=== PATIENT | female | born 1955 | race Caucasian/White ===

== ENCOUNTER → 2017-05-20 | Outpatient (CLI) | payer MEDICARE, BC ==
[~2017-05-20] MED LIST: ALBUTEROL SULFATE 2.5 MG/3 ML VIAL NEB ONE
== END ==
LOC: RESP 09:32
PROVIDERS: ATTEND Nurse Practitioner Family
DX: J44.9 Chronic obstructive pulmonary disease, unspecified (principal)
CPT/HCPCS: 94060; J7611

== ENCOUNTER → 2018-01-27 | Outpatient (CLI) | payer MEDICARE, BC ==
--- NOTE | 2018-01-27 14:57 | MRI ---
MRI right ankle without contrast INDICATION: Ankle pain status post fall 2 weeks ago TECHNIQUE: Noncontrast MR imaging right ankle standard protocol FINDINGS: There is a multi partite small accessory navicular ossification distal posterior tibialis. Small ossifications along the anterior talofibular ligament likely from previous sprain. There is localized arthrosis with subchondral cystic change and edema involving the calcaneocuboid joint as well as multifocal TMT compartments and navicular middle and navicular lateral cuneiform articulations. There is interstitial partial tearing throughout the peroneus brevis with interstitial longitudinal split. Mild tendinosis of the peroneus longus as well. Prominent plantar enthesophyte without rupture the plantar aponeurosis. Fragmented appearing irregular Achilles enthesophyte. Mild cystic change and edema along the sinus Tarsi. Localized osteoarthrosis of the posterior aspect posterior subtalar compartment with subchondral cysts and edema. There is also subchondral cystic change and edema at the anterior lip of the tibial plafond indicating localized chondrosis and developing osteoarthrosis. No Achilles or or plantar aponeurosis rupture or retraction. No focal osteochondral lesion of the talar dome. IMPRESSION: Multifocal osteoarthrosis of the right ankle/hindfoot especially calcaneocuboid as well as posterior subtalar and to a lesser extent anterior tibial plafond and as well as the midfoot especially navicular cuneiform and TMT joints Interstitial split tear with longitudinal peroneus brevis Small accessory navicular ossifications distal posterior tibialis Otherwise see above discussion Electronically signed by: Hieu Mendoza MD 01/27/2018 2:55 PM CDT
== END ==
LOC: MRI 11:00
PROVIDERS: ATTEND Nurse Practitioner Family
DX: M19.071 Primary osteoarthritis, right ankle and foot (principal); M25.571 Pain in right ankle and joints of right foot

== ENCOUNTER 2018-09-05 01:03 | Emergency (ER) | payer MEDICARE, BC ==
--- NOTE | 2018-09-05 01:24 | ED.PDOC ---
History of Present Illness - General Chief Complaint: Chest Pain/SD Stated Complaint: chest pain Time Seen by Provider: 09/05/18 01:18 Source: patient, family, EMS Exam Limitations: no limitations - History of Present Illness Initial Comments: patient comes in today for chest pain at rest. Patient states he pain started hour ago that was pressure-like, substernal without radiation but with associated diaphoresis, nausea, and shortness of breath. Pain persisted until EMS arrived and nitro and aspirin were given. At this time patient is asymptomatic. Pas she has no known cardiac history but she does admit that she has had angina before and that the nitroglycerin made it go away. She admits that she was supposed to follow up but felt better and never had stress test nor does she have nitroglycerin at home. On Thursday she had surgery on her right ankle and was doing well until today. Today she had sudden pain in the groin and in the right lower leg but that also has resolved. Timing/Duration: 1 hour Severity/Quality: severe, pressure Location: substernal Chest Pain Radiation: no radiation Activities at Onset: rest Prior Chest Pain/Cardiac Workup: angina Improving Factors: medication Worsening Factors: nothing Nitro Today/Relief: 0.4 mg x 1, provided by EMS Aspirin Treatment Today: 325 mg x 1, provided by EMS Associated Symptoms: diaphoresis, nausea/vomiting, shortness of breath Allergies/Adverse Reactions: Allergies NO KNOWN ALLERGY Allergy (Verified 09/05/18 01:22) Home Medications: Ambulatory Orders Albuterol Sulfate [Proair Hfa] 2 puff INH Q6H PRN 09/05/18 Celecoxib [Celebrex] 200 mg PO BID 09/05/18 Cephalexin 500 mg PO BID 09/05/18 Nitroglycerin 0.4 mg Tab [Nitrostat] 0.4 mg SL .Q5M PRN #60 bttl 09/05/18 Review of Systems - Review of Systems Constitutional: States: no symptoms reported. Denies: chills, fever, weakness EENTM: States: no symptoms reported. Denies: eye pain, ear pain, nose congestion, throat pain Respiratory: States: see HPI, short of breath. Denies: cough, wheezing Cardiology: States: see HPI, chest pain. Denies: edema, palpitations Gastrointestinal/Abdominal: States: nausea. Denies: abdominal pain, constipation, vomiting Genitourinary: States: no symptoms reported Musculoskeletal: States: no symptoms reported Skin: States: no symptoms reported Family Medical History - Family History Mother Family History: Unknown Living Status: Unknown Physical Exam - Physical Exam General Appearance: Alert, Comfortable, No apparent distress Eyes, Ears, Nose, Throat Exam: PERRL/EOMI, normal ENT inspection, TMs normal, pharynx normal Neck: non-tender, full range of motion, supple, normal inspection Respiratory: chest non-tender, lungs clear, normal breath sounds, no respiratory distress Cardiovascular/Chest: normal peripheral pulses, regular rate, rhythm, no edema, no gallop, no JVD, no murmur Peripheral Pulses: radial,right: 2+, radial,left: 2+ Gastrointestinal/Abdominal: normal bowel sounds, non tender, soft Neurologic: no motor/sensory deficits, alert, oriented x 3 Progress - Results/Orders Results/Orders: Patient Name: BETH ADAM Gender: Female Date of : 1955 Referring Physician: NERI RICHARDSON Organization: [facility] Accession Number: [id number] Requested Date: September 05, 2018 01:18 Report Status: Final Requested Procedure: 1 Procedure Description: Chest,1 View Modality: CR Findings Reporting MD: Mario Alberto Reese Fellow MD: Not available Dictation Time: Enforcement Officer: Not available Supplier Engineer Date: Chest single view on 09/05/2018 CLINICAL INDICATION: Chest pain COMPARISON: None FINDINGS: There is mild linear atelectasis or scarring in the lung bases. Lungs are otherwise clear. Heart is upper limits normal for size. Hilar and mediastinal contours are within normal limits. Mild vascular calcification is noted in the aorta. IMPRESSION: No acute disease 09/05/18 01:30 EKG STAT Laboratory Results WBC 11.6 K/mm3 (4.8-10.8) H 09/05/18 00:30 RBC 4.42 M/mm3 (4.20-5.40) 09/05/18 00:30 Hgb 13.0 gm/dL (12.0-16.0) 09/05/18 00:30 Hct 38.1 % (36.0-47.0) 09/05/18 00:30 MCV 86.2 fl (81.0-99.0) 09/05/18 00:30 MCH 29.5 pg (27.0-31.0) 09/05/18 00:30 MCHC 34.2 g/dL (33.0-37.0) 09/05/18 00:30 RDW 15.1 % (11.5-14.5) H 09/05/18 00:30 Plt Count 240 K/mm3 (130-400) 09/05/18 00:30 MPV 7.5 fl (7.40-10.4) 09/05/18 00:30 Absolute Neuts (auto) 8.00 K/uL (1.8-6.8) H 09/05/18 00:30 Absolute Lymphs (auto) 2.50 K/uL (1.0-3.4) 09/05/18 00:30 Absolute Monos (auto) 0.90 K/uL (0.2-0.8) H 09/05/18 00:30 Absolute Eos (auto) 0.20 K/uL (0.0-0.4) 09/05/18 00:30 Absolute Basos (auto) 0.10 K/uL (0.0-0.1) 09/05/18 00:30 Neutrophils % 68.7 % (42.0-78.0) 09/05/18 00:30 Lymphocytes % 21.3 % (20.0-50.0) 09/05/18 00:30 Monocytes % 7.7 % (2.0-9.0) 09/05/18 00:30 Eosinophils % 1.7 % (1.0-5.0) 09/05/18 00:30 Basophils % 0.6 % (0.0-2.0) 09/05/18 00:30 PT 9.9 SECONDS (9.0-10.9) 09/05/18 00:30 INR 0.99 (0.9-1.15) 09/05/18 00:30 PTT (SP) 23.0 SECONDS (21.8-31.6) 09/05/18 00:30 D-Dimer, Quantitative 0.71 mg/L FEU (0-0.49) H* 09/05/18 00:30 Sodium 137 mmol/L (135-145) 12/09/18 00:30 Potassium 3.1 mmol/L (3.6-5.0) L 09/05/18 00:30 Chloride 103 mmol/L (101-111) 09/05/18 00:30 Carbon Dioxide 27 mmol/L (21-31) 09/05/18 00:30 Anion Gap 10.1 (12-18) L 09/05/18 00:30 BUN 11 mg/dL (7-18) 09/05/18 00:30 Creatinine 0.69 mg/dL (0.6-1.3) 09/05/18 00:30 BUN/Creatinine Ratio 15.9 (10-20) 09/05/18 00:30 Random Glucose 126 mg/dL (70-105) H 09/05/18 00:30 Serum Osmolality 274.7 mOsm/L (275-295) L 09/05/18 00:30 Calcium 8.5 mg/dL (8.4-10.2) 09/05/18 00:30 Magnesium 1.8 mg/dL (1.8-2.5) 09/05/18 00:30 Creatine Kinase 73 IU/L (26-140) 09/05/18 00:30 CK-MB (CK-2) 1.1 ng/mL (0.0-4.4) 09/05/18 00:30 CK-MB (CK-2) % Not Reportable 09/05/18 00:30 Troponin I < 0.02 ng/mL (0.01-0.05) 09/05/18 00:30 CTA no PE - EKG/XRAY/CT EKG: Sinus, no ST T wave changes Comments: HR 73 normal axis Departure - Departure Clinical Impression: D-dimer, elevated Chest pain Qualifiers: Chest pain type: unspecified Qualified Code(s): R07.9 - Chest pain, unspecified Disposition: Discharge to Home or Self Care Condition: Good Departure Forms: ED Discharge - Pt. Copy, Patient Portal Self Enrollment Instructions: DI for Chest Pain Referrals: Adry Brian NP [Primary Care Provider] - 1-2 Weeks Prescriptions: Nitroglycerin 0.4 mg Tab [Nitrostat] 0.4 mg SL .Q5M PRN #60 bttl PRN Reason: Chest Pain Home Medications: Ambulatory Orders Albuterol Sulfate [Proair Hfa] 2 puff INH Q6H PRN 09/05/18 Celecoxib [Celebrex] 200 mg PO BID 09/05/18 Cephalexin 500 mg PO BID 09/05/18 Nitroglycerin 0.4 mg Tab [Nitrostat] 0.4 mg SL .Q5M PRN #60 bttl 09/05/18 Additional Instructions: take ASA 325 mg po qd. Patient should be called in am with appointment time for doppler. If unable to get done Thursday morning will need outpatient Lovenox daily until doppler resolved. Return to ER for chest pain, shortness of breath. Follow up with PCP in 2-3 days to ensure follow up with test results.
[2018-09-05 01:25] VITALS: TEMP 98.3
--- NOTE | 2018-09-05 01:52 | RAD ---
Chest single view on 09/05/2018 CLINICAL INDICATION: Chest pain COMPARISON: None FINDINGS: There is mild linear atelectasis or scarring in the lung bases. Lungs are otherwise clear. Heart is upper limits normal for size. Hilar and mediastinal contours are within normal limits. Mild vascular calcification is noted in the aorta. IMPRESSION: No acute disease. Electronically signed by: Mario Alberto Reese 09/05/2018 1:51 AM UNIT TRUST MANAGER
[2018-09-05 02:39] VITALS: O2SAT 99
--- NOTE | 2018-09-05 03:50 | CT ---
EXAM: CT chest angiogram with contrast. INDICATION: Chest pain. TECHNIQUE: Contiguous axial CT images of the chest. Intravenous contrast: Present. Protocol: Pulmonary embolus (PE) protocol angiogram. Reformats: MIPs and MPRs created and utilized. DLP 591 mGy-cm. This exam was performed according to our departmental dose-optimization program, which includes automated exposure control, adjustment of the mA and/or kV according to patient size and/or use of iterative reconstruction technique. Note: LV=left ventricle. RV=right ventricle. COMPARISON: None. FINDINGS: Upper abdomen: Partially imaged. Contains a subcentimeter hypodensity within the right hepatic lobe, which is too small to further characterize. Thoracic aorta: Unremarkable. Heart: No right atrial thrombus. RV/LV ratio: Within normal limits. Pulmonary arteries: There is suboptimal opacification of the pulmonary arteries. Pulmonary embolus: No large central pulmonary embolism is detected. Mediastinum: No pathologic sized middle mediastinal lymphadenopathy. Tracheobronchial tree: Unremarkable. Lungs: Lobar consolidation: Negative. Pleural effusion: Negative. Pneumothorax: Negative. Other: Negative. Bones: Unremarkable. IMPRESSION: 1. No CT evidence of acute PE. Electronically signed by: Jay Whitt MD 09/05/2018 3:49 AM CREATIVE ART DIRECTOR Workstation: [employer]
[2018-09-05] MEDS ORDERED: ENOXAPARIN SODIUM 100 MG/ML SYG SUBCU ONE (03:56)
[2018-09-05 04:09] VITALS: BP 114/80
== END 2018-09-05 04:15 | disposition home or self-care (01) ==
LOC: ER 01:03
DX: R07.2 Precordial pain (principal); R79.89 Other specified abnormal findings of blood chemistry; R06.02 Shortness of breath; R11.0 Nausea
CPT/HCPCS: 36415; 71045; 71275; 80048; 82550; 82553; 84484; 85025; 85379; 85610; 85730; 93005; J1650

== ENCOUNTER → 2018-09-06 | Outpatient (CLI) | payer MEDICARE, BC ==
--- NOTE | 2018-09-06 17:11 | US ---
EXAM DESCRIPTION: Venous,Lower Extremity RT CLINICAL HISTORY: I82.409 right foot swelling after right foot surgery COMPARISON: None Available. TECHNIQUE: Right lower extremity venous duplex FINDINGS: Doppler evaluation of the right lower extremity deep veins was performed. Normal color flow is seen in the common femoral, superficial femoral, profunda femoral and greater saphenous veins. Normal flow is seen in the popliteal vein and veins below the knee in the calf. Normal venous compressibility and flow augmentation. IMPRESSION: Negative for evidence of deep venous thrombosis on right lower extremity venous Doppler sonogram. Electronically signed by: Ishmael Ramirez MD 09/06/2018 5:10 PM [facility]
== END ==
LOC: US 15:26
PROVIDERS: ATTEND Nurse Practitioner Family
DX: R22.41 Localized swelling, mass and lump, right lower limb (principal); I82.409 Acute embolism and thrombosis of unspecified deep veins of unspecified lower extremity

== ENCOUNTER → 2019-07-12 | Outpatient (CLI) | payer MEDICARE, BC ==
--- NOTE | 2019-07-12 16:06 | MRI ---
Study: MRI of the Left Foot. MRI of the Left Ankle. Indication: PERONEAL TENDONITIS Technique: Multiplanar, multi sequence MRI of the left foot and MRI of the left ankle were obtained without intravenous contrast. Comparison: None Findings: Patchy grade 4 chondrosis throughout the calcaneus at its articulation with the cuboid with subcortical cystic change and mild marrow edema. No acute fracture. Scattered mild osteoarthritis throughout the midfoot. Mild subchondral marrow change of the cuboid at the fourth TMT joint. Small subtalar and talonavicular joint effusions with ganglionic like distention along the superolateral margin of the talonavicular joint. Moderate tenosynovitis of the peroneal tendons with high-grade tendinosis and longitudinal split tearing of the peroneus brevis tendon extending from the level of the posterior margin lateral malleolus to the insertion. Subtle tendinosis of the peroneus longus tendon. Millimetric ossifications noted within the peroneus brevis tendon immediately proximal to its insertion site. Trace tenosynovitis medial tendons with subtle insertional posterior tibialis tendinosis and a tiny accessory navicular bone. Anterior tendons and Achilles tendon intact. Prior high-grade partial tear and attenuation anterior talofibular ligament. No acute full-thickness tear of the medial or lateral ankle ligaments. Prominent spurring at the Achilles tendon insertion as well as the plantar fascia origin.No acute inflammation of the plantar fascia. Impression: Long segment tendinosis and longitudinal split tearing peroneus brevis tendon without transection. Tenosynovitis of the peroneal tendon sheath noted with subtle tendinosis of the longus tendon. Prior high-grade tear anterior talofibular ligament. Scattered osteoarthritic of the left ankle with changes most pronounced at the calcaneocuboid joint. Additional findings as above. Electronically signed by: Daniel Diaz MD 07/12/2019 4:04 PM CDT
--- NOTE | 2019-07-12 16:19 | MRI ---
Study: MRI of the Right Ankle. Indication: PERONEAL TENDONITIS Technique: Multiplanar, multi sequence MRI of the right ankle was obtained without intravenous contrast. Comparison: January 27, 2018. Findings: Tiny accessory navicular bone with insertional posterior tibialis tendinosis. Medial tendons intact. Low-grade Achilles tendinosis at its insertion with mild enthesophyte formation. Prominent plantar calcaneal heel spur without acute inflammation of the plantar fascia. Anterior tendons intact. Long segment tendinosis and longitudinal split tearing peroneus brevis tendon extending from the posterior margin lateral malleolus to the level of its insertion. No transection. Peroneus longus tendon intact. Prior sprain and scarring anterior talofibular ligament. No acute fluid filled tear of the medial or lateral ankle ligaments. Ankle mortise alignment normal. Patchy areas of grade 4 chondrosis and subchondral cystic change redemonstrated throughout the anterior and posterior subtalar joint, calcaneocuboid joint, and anterior margin tibial plafond which appears similar to prior but with slightly less pronounced surrounding marrow edema at these sites. Additional mild to moderate osteoarthritis throughout the midfoot with degenerative marrow edema in the lateral aspect of the navicular bone and central aspects of the intermediate cuneiform. No acute fracture or talar coalition. Impression: Persistent long segment tendinosis and longitudinal split tearing peroneus brevis tendon. No tendon rupture. Scattered osteoarthritis throughout the ankle and most pronounced at the subtalar and calcaneocuboid joints where there is multifocal grade 4 chondrosis subchondral cystic change as on the prior. Prior partial thickness tearing scarring anterior talofibular ligament. Additional stable findings as above. Electronically signed by: Daniel Diaz MD 07/12/2019 4:17 PM CDT
== END ==
LOC: MRI 10:37
PROVIDERS: ATTEND Podiatrist Foot & Ankle Surgery
DX: M76.71 Peroneal tendinitis, right leg (principal); M76.72 Peroneal tendinitis, left leg; S93.431A Sprain of tibiofibular ligament of right ankle, initial encounter; S93.432A Sprain of tibiofibular ligament of left ankle, initial encounter; M19.071 Primary osteoarthritis, right ankle and foot; M19.072 Primary osteoarthritis, left ankle and foot; M94.271 Chondromalacia, right ankle and joints of right foot

== ENCOUNTER → 2019-08-04 | Outpatient (CLI) | payer MEDICARE, BC ==
--- NOTE | 2019-08-04 17:56 | MRI ---
EXAM DESCRIPTION: Lower Extremity,Left CLINICAL HISTORY: 64 years, Female, PERONEAL TENDON LIPOMA COMPARISON: Left ankle MRI 07/12/2019. TECHNIQUE: MRI of the left foot was performed with multiplanar multi sequence imaging without intravenous contrast. FINDINGS: Bone and joints: No focal bone marrow contusion or fracture. Scattered mild osteoarthritic changes with subcortical cystic changes which is more pronounced at the first TMT and first tarsal sesamoid joints. Prior corrective osteotomy involving the fifth metatarsal neck and proximal phalanx. Mild synovial thickening along dorsal aspect of the second TMT joint. Ligaments and tendons: The visualized distal aspects of the peroneus brevis tendon attachment to the fifth metatarsal base is unremarkable. Small os peroneum. The course of the peroneus longus tendon within the forefoot is also unremarkable without evidence of focal tear or peroneal tendon sheath lipoma. The visualized flexor and extensor tendons are intact. The visualized Lisfranc ligament complex is intact. No significant tenosynovitis. Soft tissues: No solid or cystic mass is seen within the forefoot. Mild nonspecific susceptibility artifact along the plantar aspect of the fifth toe, likely related to prior surgery. IMPRESSION: 1. No left foot solid or cystic mass. Normal course and morphology of the peroneal tendons within the left forefoot. 2. Prior fifth metatarsal and proximal phalanx corrective osteotomy. 3. No acute myotendinous injury. Electronically signed by: Eric Knowles DO 08/04/2019 5:54 PM COLLECTION SYSTEMS MODELER
--- NOTE | 2019-08-04 18:10 | MRI ---
EXAM DESCRIPTION: Lower Extremity,Right CLINICAL HISTORY: 64 years, Female, PERONEAL TENDON LIPOMA COMPARISON: Right ankle MRI 07/12/2019. TECHNIQUE: MRI of the right foot was performed with multiplanar multi sequence imaging without intravenous contrast. FINDINGS: Bone and joints: No focal bone marrow contusion or fracture. Scattered mild osteoarthritic changes with subcortical cystic changes at the TMT and midfoot articulations (more pronounced involving the calcaneocuboid joint). Trace metatarsal phalangeal joints joint effusions. Ligaments and tendons: The visualized distal aspects of the peroneus brevis tendon attachment to the fifth metatarsal base is intact with mild enthesophyte formation. The course of the peroneus longus tendon within the forefoot is unremarkable without evidence of focal tear or peroneal tendon sheath lipoma. The visualized flexor and extensor tendons are intact. The visualized Lisfranc ligament complex is intact. No significant tenosynovitis. Soft tissues: No solid or cystic mass is seen within the forefoot. Mild soft tissue edema surrounds the fourth and fifth MTP joints with mild intermetatarsal bursitis between the third and fourth and fourth and fifth metatarsal heads. No fluid collection or abscess. IMPRESSION: 1. No right foot solid or cystic mass. No mass along the peroneal tendons within the forefoot. 2. Nonspecific soft tissue edema along the lateral forefoot with mild third and fourth intermetatarsal bursitis. 3. Right forefoot and midfoot osteoarthrosis. Electronically signed by: Eric Knowles DO 08/04/2019 6:08 PM CALIBRATOR BAROMETERS
== END ==
LOC: MRI 14:00
PROVIDERS: ATTEND Podiatrist Foot & Ankle Surgery
DX: M76.70 Peroneal tendinitis, unspecified leg (principal); D17.9 Benign lipomatous neoplasm, unspecified; M19.071 Primary osteoarthritis, right ankle and foot; M77.51 Other enthesopathy of right foot and ankle; Z98.890 Other specified postprocedural states

== ENCOUNTER 2019-08-17 05:06 | Day surgery (SDC) | payer MEDICARE, BC ==
[2019-08-17] MEDS ORDERED: LACTATED RINGERS 1,000 ML ONE (07:00)
[2019-08-17 09:50] VITALS: BP 117/56; TEMP 96.2; O2SAT 100
[2019-08-17] MEDS ORDERED: LIDOCAINE 1% 10 ML VIAL INJ ONE (10:00)
[2019-08-17] MEDS ORDERED: PROPOFOL 200 MG/20 ML VIAL IV ONE (10:00)
--- NOTE | 2019-08-17 10:07 | OP ---
DATE OF PROCEDURE: 08/17/19 PREOPERATIVE DIAGNOSIS: 1. Gastroesophageal reflux disease without esophagitis. 2. Abdominal pain. 3. Abnormal weight loss. 4. Positive Cologuard. 5. Change in bowel habits. POSTOPERATIVE DIAGNOSIS: 1. Gastritis. 2. Colonic polyps. 3. Large ileocecal valve polyp. PROCEDURE: 1. EGD. 2. Colonoscopy. SURGEON: Ayo Kilgore MD ANESTHESIA: Monitored anesthesia care. ESTIMATED BLOOD LOSS: Less than 5 mL. COMPLICATIONS: None. PROCEDURE: The patient was placed in the left lateral decubitus position. A time-out was performed. After deep sedation was achieved, the Olympus adult upper endoscope was inserted through the oropharynx and into the proximal esophagus and advanced to the second portion of the duodenum under direct visualization. The endoscope was then withdrawn and the total duodenum, stomach and esophageal lumen were evaluated. Retroflexion was performed in the stomach. The endoscope was withdrawn. The stretcher was rotated 180 degrees and we proceeded with the colonoscopy. A digital rectal exam was performed and was noted to be unremarkable. The Olympus adult colonoscope was inserted through the anus, into the rectum and advanced to the cecum under direct visualization. The cecum was identified by the ileocecal valve and the appendiceal orifice. Photodocumentation of these locations was performed. The patients bowel preparation was good. The endoscope was then progressively withdrawn and the total colonic lumen evaluated. Retroflexion was performed in the rectum. The endoscope was then withdrawn and the procedure terminated. The patient tolerated the procedure well with no immediate complications. EGD FINDINGS: 1. Esophagus: The esophagus was unremarkable. 2. Stomach: Gastritis characterized by moderate to severe mucosal edema and erythema was seen diffusely throughout the antrum and body. Random gastric biopsies were taken to rule out H. pylori. 3. Duodenum: The first and second portions of the duodenum were unremarkable. COLONOSCOPY FINDINGS: 1. A large, 6 to 8 cm, semi-pedunculated polyp was noted at the ileocecal valve. There was evidence of active oozing. The polyp was multi-lobular and concerning for underlying malignancy. Multiple biopsies were taken from the polyp for histology. Injection of tattoo ink was performed distal to the polyp, a total of 2 mL of Allison ink were injected. 2. Three transverse colon polyps, all sessile, ranging in size from 3 to 6 mm, removed with a cold snare and retrieved for pathology. 3. One descending colon polyp measuring 6 mm, removed with a cold snare and retrieved for pathology. 4. Grade 2 non-bleeding internal hemorrhoids were seen upon retroflexion in the rectum. IMPRESSION: 1. Gastritic, biopsied. 2. Colonic polyps in the ascending and descending colon, removed. 3. Massive ileocecal valve polyp concerning for underlying malignancy, biopsied, tattooed. RECOMMENDATIONS: 1. Okay to discharge home once the patient meets discharge criteria. 2. Resume prior diet. 3. Resume home medications. 4. Await pathology results. 5. Schedule CT scan of the chest, abdomen and pelvis given abnormal weight loss and large, possibly cancerous polyp. 6. If pathology of the large polyp is not malignant, consider repeat colonoscopy with attempts at polypectomy. 7. Followup in the GI clinic with Dr. Kilgore in 3 months. #[id number] [facility]
== END 2019-08-17 10:20 | disposition home or self-care (01) ==
LOC: AMB 05:06
PROVIDERS: ATTEND Internal Medicine Gastroenterology
DX: R19.5 Other fecal abnormalities (principal); D12.4 Benign neoplasm of descending colon; D12.3 Benign neoplasm of transverse colon; D12.0 Benign neoplasm of cecum; K64.1 Second degree hemorrhoids; K29.50 Unspecified chronic gastritis without bleeding; K21.9 Gastro-esophageal reflux disease without esophagitis; F32.9 Major depressive disorder, single episode, unspecified; G47.00 Insomnia, unspecified; M06.9 Rheumatoid arthritis, unspecified; Z90.710 Acquired absence of both cervix and uterus; Z79.899 Other long term (current) drug therapy
CPT/HCPCS: 00813; 43239; 45380; 45381; 45385; 88305; 88342; J3490; J7120

== ENCOUNTER 2019-08-22 10:47 | Emergency (ER) | payer MEDICARE, BC ==
--- NOTE | 2019-08-22 10:30 | CT ---
EXAM DESCRIPTION: Chest w/Contrast : Computed Tomography. CLINICAL HISTORY: 64 years Female ABNORMAL WEIGHT LOSE COMPARISON: CTA of the chest with contrast [address] scan abdomen and pelvis on this visit. TECHNIQUE: Spiral-axial scans at 5 x 5 mm intervals through the lungs and thorax without and with IV contrast. 2.5 x 5 mm lung algorithm axial reconstructions with IV contrast.. Coronal and sagittal 2.0 Mm reconstructions with IV contrast. No adverse reactions. Total Exam DLP: 1237.54 mGy-cm. This exam was performed according to our departmental dose-optimization program which includes automated exposure control, adjustment of the mA and/or kV according to patient size and/or use of iterative reconstruction technique; to reduce radiation dose to as low as reasonably achievable (ALARA). Nodule measurements under 10 mm are given as mean value of 3 axes diameters. FINDINGS: Lungs and large airways: Bilateral parenchymal pleural scarring. No abnormal nodules and no masses. No focal infiltrates. Pleural spaces: Negative. Mediastinum and Lynn: Small lymph nodes with fatty lynn. No dominant soft tissue masses. Great vessels and Heart: Negative. Soft tissues of neck base, axillae, and chest wall: Bilateral axillary lymph nodes. Upper abdomen: Please see images and report on CT abdomen and pelvis on this visit Osseous structures: Mild levoscoliosis. Mild to moderate glenohumeral arthrosis right and mild arthrosis on the left. IMPRESSION: 1. Chronic parenchymal pleural scarring bilaterally, but lessened compared to the prior study almost one year ago. 2. No abnormal nodules and no masses. Electronically signed by: Joaquin Swan MD 08/22/2019 10:29 AM SOLE SPLITTER
[2019-08-22 11:12] VITALS: TEMP 98.1
--- NOTE | 2019-08-22 11:18 | CT ---
EXAM DESCRIPTION: Abdomen/Pelvis w/Contrast: Computed Tomography. CLINICAL HISTORY: 64 years Female UNSPECIFIED ABDOMINAL PAIN COMPARISON: None. TECHNIQUE: Spiral-axial scans at 5 x 5 mm intervals through the abdomen and pelvis, after 75 mL, Optiray 320 nonionic IV contrast no oral contrast. Coronal and sagittal 2.0 mm reconstructions. Delayed scans, liver through the pelvis. Axial-spiral 5mm. No adverse reactions. Total Exam DLP: 782.4 mGy-cm. This exam was performed according to our departmental dose-optimization program which includes automated exposure control, adjustment of the mA and/or kV according to patient size and/or use of iterative reconstruction technique; to reduce radiation dose to as low as reasonably achievable (ALARA). FINDINGS: Lung bases and pleura: Please see images and report from chest CT scan on this visit. Kidneys and ureters: Poorly defined mass, with heterogeneous enhancement, in the lower right renal cortex explaining the renal capsule posteriorly and inferiorly with mass effect on the lower collecting system, displaced and minimal hydronephrosis. Dimensions are 2.7 x 2.0 x 2.0 cm. The mass is extending into the mid collecting system with mass effect. The right renal vein contains heterogeneous mass extending from the renal hilum to the IVC. This is more likely related to the lower pole mass then thrombosis. The superior collecting system is unremarkable. Left kidney is negative. No perirenal stranding or fluid or mass bilaterally. Bilateral ureters are normal caliber. Liver, Stomach, Spleen, Adrenal Glands: Small cyst upper right liver. 17.4 cm craniocaudal. Stomach unremarkable. Other solid organs are negative. Pancreas, Gallbladder, Ducts: Surgical clips gallbladder fossa with no fluid. Duct not dilated. Pancreas negative. Mesentery: No free fluid or free air. No fatty stranding or fascial thickening. Aorta: Minimal ectasia. 2.1 cm diameter maximum, just above the level of the celiac axis. Minimal atherosclerotic calcification and intimal wall thickening. Small Bowel: No distention. Fluid and gas with no significant air-fluid levels. Terminal Ileum/Cecum: Normal caliber of the TI. Cecum distended by gas fecal material and fluid. Solid mass in the posterior inferior cecum measuring 4.2 x 2.0 x 3.7 cm. Displaces the serosa of the sigmoid in the posterior direction. Appendix. Visible with no surrounding fatty stranding. Colon: Moderate amount of fecal material proximal to thirds of the colon. Distention of the rectum by fecal matter. No complications. Pelvic Organs: No fluid. Vaginal cuff negative. Spine and Bony Pelvis: Lumbosacral levoscoliosis and thoracolumbar dextroscoliosis. Spondylosis in the included thoracic spine segments. Disc spur complex at L5-S1 protruding into the right foramen with significant narrowing. Arthrosis and facet changes right SI joint. Arthrosis bilateral hip joints. Abdominal Wall/Back Soft Tissues: Negative. IMPRESSION: 1. 2.7 cm mass with irregular margins and heterogeneous enhancement in the lower pole of the right kidney with mild hydronephrosis in the lower pole. The mass extends into the mid collecting system. Mass may also extend to the renal vein versus thrombosis to the level of the SVC. Most likely primary renal tumor such as renal cell carcinoma. No hydronephrosis of the upper collecting system. No perirenal mass fluid or stranding. Left kidney is unremarkable. No adenopathy in the periaortic region or upper abdomen. 2. 4 cm mass or polyp in the posterior inferior cecum displacing the posterior serosa. Surrounded by fecal material and fluid. No inflammatory changes or fluid collection around the cecum. No TI distention or obstruction. 3. Arthrosis in the spine and pelvis. Constipation proximal to thirds of the colon and rectum. Ectasia/aortic dilation with atherosclerotic changes in the aorta. Mild aortic dilatation, not meeting criteria for aneurysm. No follow-up imaging of aorta is recommended. Reference: J Am Jovanna Radiol 2013;10:789-794. Electronically signed by: Joaquin Swan MD 08/22/2019 11:16 AM [facility]
--- NOTE | 2019-08-22 11:29 | ED.PDOC ---
History of Present Illness - General Chief Complaint: GI Problem Time Seen by Provider: 08/22/19 11:22 Information Source: patient, RN notes reviewed, Vital Signs reviewed, EMS notes reviewed, family Exam Limitations: clinical condition Additional Information: this is a 64-year-old white female who presents to the emergency room with her with complaints of abdominal pain for the past 2 months. She had a col onoscopy performed by Dr. Kilgore several days ago. He ordered a CT scan for this morning and that has been completed. On their way home the patient ate 2 bites of the Sandwhich and would not finish it. Her became concerned that she may be dehydrated as well and brought her to the emergency room. He states that in the past 2 months she was diagnosed with H. pylori and treated for that. A nurse practitioner ordered that treatment and she has completed a couple of weeks ago. Gastric biopsies were performed to determine whether or not that has been resolved. She had a colonoscopy that revealed a large polyp which requires removal in [place]. Apparently the abseiling instructor was unable to get it here. She has lost about 20 pounds in the past several months. She denies any fever or chills. Her appetite has been greatly reduced. She denies any blood in her stool or black tarry stools. No history of cancers otherwise. HEENT is 6/10 in intensity. Some mild nausea but no vomiting. She was able to eat yesterday as well. She admits to a bowel movement today. Review of Systems - Review of Systems Constitutional: States: malaise. Denies: chills, fever EENTM: States: no symptoms reported Respiratory: States: no symptoms reported Cardiology: States: no symptoms reported Gastrointestinal/Abdominal: States: abdominal pain, nausea, other - poor appetite. Denies: constipation, diarrhea, vomiting Genitourinary: States: no symptoms reported Musculoskeletal: States: no symptoms reported Skin: States: other - reports tenting of her skin Neurological: States: no symptoms reported, see HPI, anxiety, depressed, emotional problems Endocrine: States: unexplained weight loss Hematologic/Lymphatic: States: no symptoms reported All other Systems: Reviewed and Negative Past Medical History (General) - Patient Medical History Hx Stroke: No Hx Congestive Heart Failure: No Hx Diabetes: No Hx MRSA: No - Vaccination History Hx Influenza Vaccination: Yes Hx Pneumococcal Vaccination: No - Social History Hx Tobacco Use: No Family Medical History - Family History Mother Family History: Unknown Living Status: Unknown Physical Exam - Physical Exam General Appearance: No apparent distress, Other - patient lies flat in the supine position and does not speak much. States her knows all the information. She keeps her eyes closed. Eyes, Ears, Nose, Throat Exam: PERRL/EOMI, normal ENT inspection, other - oropharynx is dry Neck: non-tender, full range of motion, supple, normal inspection Respiratory: chest non-tender, lungs clear, normal breath sounds, no respiratory distress, no accessory muscle use Cardiovascular/Chest: normal peripheral pulses, regular rate, rhythm, no edema, no gallop, no JVD, no murmur Peripheral Pulses: No deficit Gastrointestinal/Abdominal: normal bowel sounds, soft, no organomegaly, no pulsatile mass, tenderness - noted in the right and left lower quadrants Rectal Exam: deferred Back Exam: normal inspection, no CVA tenderness, no vertebral tenderness Extremity: normal range of motion, non-tender, normal inspection, no pedal edema Neurologic: cooker loader II-XII nml as tested, no motor/sensory deficits, alert, oriented x 3 Skin Exam: normal color, warm/dry Lymphatic: no adenopathy Progress - Progress Progress: 08/22/19 14:17 I discussed all findings with the patient and her . They are aware that she needs further workup involving the right kidney. They have an appointment with Dr. Kilgore for follow-up on the colonic polyp. They will make an appointment to see her PCP later this week. She will need further referral to urology most likely. - Results/Orders Results/Orders: IMPRESSION: 1. Chronic parenchymal pleural scarring bilaterally, but lessened compared to the prior study almost one year ago. 2. No abnormal nodules and no masses. Electronically signed by: Joaquin Swan MD 08/22/2019 10:29 AM [facility] IMPRESSION: 1. 2.7 cm mass with irregular margins and heterogeneous enhancement in the lower pole of the right kidney with mild hydronephrosis in the lower pole. The mass extends into the mid collecting system. Mass may also extend to the renal vein versus thrombosis to the level of the SVC. Most likely primary renal tumor such as renal cell carcinoma. No hydronephrosis of the upper colle cting system. No perirenal mass fluid or stranding. Left kidney is unremarkable. No adenopathy in the periaortic region or upper abdomen. 2. 4 cm mass or polyp in the posterior inferior cecum displacing the posterior serosa. Surrounded by fecal material and fluid. No inflammatory changes or fluid collection around the cecum. No TI distention or obstruction. 3. Arthrosis in the spine and pelvis. Co nstipation proximal to thirds of the colon and rectum. Ectasia/aortic dilation with atherosclerotic changes in the aorta. Mild aortic dilatation, not meeting criteria for aneurysm. No follow-up imaging of aorta is recommended. Reference: J Am Jovanna Radiol 2013;10:789-794. Electronically signed by: Joaquin Swan MD 08/22/2019 11:16 AM [facility] Laboratory Tests 08/22/19 08/22/19 08/22/19 11:43 11:43 11:43 WBC 6.7 RBC 4.14 L Hgb 12.2 Hct 34.7 L MCV 83.8 MCH 29.4 MCHC 35.0 RDW 14.3 Plt Count 221 MPV 7.2 L Absolute Neuts (auto) 3.80 Absolute Lymphs (auto) 2.00 Absolute Monos (auto) 0.60 Absolute Eos (auto) 0.30 Absolute Basos (auto) 0.10 Neutrophils % 57.0 Lymphocytes % 29.9 Monocytes % 8.4 Eosinophils % 3.8 Basophils % 0.9 Sodium 135 Potassium 3.1 L Chloride 99 L Carbon Dioxide 22 Anion Gap 17.1 BUN 16 Creatinine 0.73 BUN/Creatinine Ratio 21.9 H Random Glucose 123 H Serum Osmolality 272.6 L Lactic Acid 1.6 Calcium 8.7 Total Bilirubin 0.7 AST 18 ALT 13 Alkaline Phosphatase 66 Serum Total Protein 7.1 Albumin 4.0 Globulin 3.1 Albumin/Globulin Ratio 1.3 Lipase 08/22/19 11:43 WBC RBC Hgb Hct MCV MCH MCHC RDW Plt Count MPV Absolute Neuts (auto) Absolute Lymphs (auto) Absolute Monos (auto) Absolute Eos (auto) Absolute Basos (auto) Neutrophils % Lymphocytes % Monocytes % Eosinophils % Basophils % Sodium Potassium Chloride Carbon Dioxide Anion Gap BUN Creatinine BUN/Creatinine Ratio Random Glucose Serum Osmolality Lactic Acid Calcium Total Bilirubin AST ALT Alkaline Phosphatase Serum Total Protein Albumin Globulin Albumin/Globulin Ratio Lipase 35 Departure - Departure Clinical Impression: Right kidney mass, Hypokalemia, Weight loss Constipation Qualifiers: Constipation type: unspecified constipation type Qualified Code(s): K59.00 - Constipation, unspecified Colonic polyp Qualifiers: Colon polyp type: unspecified Colon location: ascending Qualified Code(s): D12.2 - Benign neoplasm of ascending colon Time of Disposition: 14:20 Disposition: Discharge to Home or Self Care Condition: Good Departure Forms: ED Discharge - Pt. Copy, Patient Portal Self Enrollment Diet: resume usual diet Referrals: Adry Brian NP [Primary Care Provider] - 1-2 Weeks Prescriptions: Acetaminophen W/ Codeine [Tylenol W/ CODEINE #3] 1 ea PO Q6HR #20 Polyethylene Glycol 3350 [Tgt Powderlax] 17 gm PO Q24HR #20 robin Potassium Gluconate 2 meq PO Q24HR #20 tab Home Medications: Ambulatory Orders DULoxetine HCL [Cymbalta] 60 mg PO DAILY 08/15/19 Eszopiclone [Lunesta] 1 mg PO BEDTIME 08/15/19 Meloxicam [Mobic] 7.5 mg PO DAILY 08/15/19 Omeprazole [Prilosec Cap] 20 mg PO BID 08/15/19 Acetaminophen W/ Codeine [Tylenol W/ CODEINE #3] 1 ea PO Q6HR #20 08/22/19 Polyethylene Glycol 3350 [Tgt Powderlax] 17 gm PO Q24HR #20 robin 08/22/19 Potassium Gluconate 2 meq PO Q24HR #20 tab 08/22/19
[2019-08-22] MEDS ORDERED: ONDANSETRON INJ 4 MG/2 ML VIAL IV ONE (11:30)
[2019-08-22] MEDS ORDERED: PANTOPRAZOLE SODIUM IV 40 MG VIAL IV ONE (11:30)
[2019-08-22] MEDS ORDERED: SODIUM CHLORIDE 0.9% 1000ML 1,000 ML IVS ONE (11:30)
[2019-08-22] MEDS ORDERED: MORPHINE SULFATE INJ 10 MG/ML VIAL IV ONE (11:32)
[2019-08-22 14:57] VITALS: BP 149/60; O2SAT 94
== END 2019-08-22 14:50 | disposition home or self-care (01) ==
LOC: ER 10:47
DX: K59.00 Constipation, unspecified (principal); D12.2 Benign neoplasm of ascending colon; E87.6 Hypokalemia; R63.4 Abnormal weight loss; N28.89 Other specified disorders of kidney and ureter; R11.0 Nausea; N13.30 Unspecified hydronephrosis; F41.9 Anxiety disorder, unspecified; F32.9 Major depressive disorder, single episode, unspecified
CPT/HCPCS: 36415; 71260; 74177; 80053; 82565; 83605; 83690; 84520; 85025; J2270; J2405; J7030

== ENCOUNTER → 2019-09-07 | Outpatient (CLI) | payer MEDICARE, BC ==
--- NOTE | 2019-09-07 13:20 | MRI ---
EXAM DESCRIPTION: Abdomen w/wo Contrast CLINICAL HISTORY: 64 years Female, RENAL MASS COMPARISON: CT abdomen pelvis August 22, 2019 TECHNIQUE: Multiplanar multisequence images of the abdomen were obtained with and without gadolinium contrast. FINDINGS: Again seen is a round circumscribed solid cortical mass inferior pole right kidney measuring up to 2.9 cm diameter with subtle overlying renal contour abnormality. The lesion demonstrates heterogeneous enhancement on postcontrast imaging, most apparent in arterial phase. The lesion extends toward and possibly into the lower pole collecting system. The right renal vein is expanded with heterogeneous enhancement consistent with tumor thrombus extending to the junction of the right renal vein and IVC. No definite intraluminal extension into the IVC. No retroperitoneal adenopathy. No contralateral renal mass. No perinephric fluid. No pleural effusion is seen in the lung bases. No ascites. No adrenal nodule. No liver mass. No splenomegaly. IMPRESSION: 2.9 cm heterogeneously enhancing solid mass inferior pole right kidney highly suspicious for renal cell carcinoma. Tumor thrombus extends into the right renal vein to the junction of the right renal vein and IVC, no intraluminal extension into the IVC. No contralateral renal mass, retroperitoneal adenopathy or apparent metastatic disease elsewhere in the abdomen. Urologic consultation is recommended. Electronically signed by: Martin Liu MD 09/07/2019 1:18 PM RN [facility]
== END ==
LOC: MRI 10:55
PROVIDERS: ATTEND Urology
DX: D30.01 Benign neoplasm of right kidney (principal)

== ENCOUNTER → 2019-09-14 | Outpatient (CLI) | payer MEDICARE, BC | LOC: NC 08:35 | PROVIDERS: ATTEND Nurse Practitioner Family | DX: R30.0 Dysuria (principal) ==

== ENCOUNTER → 2019-09-23 | Outpatient (CLI) | payer MEDICARE, BC ==
--- NOTE | 2019-09-23 11:06 | US ---
EXAM DESCRIPTION: Venous,Lower Extremity RT CLINICAL HISTORY: DVT COMPARISON: Previous right lower extremity venous Doppler sonogram September 06, 2018 TECHNIQUE: Right lower extremity venous duplex FINDINGS: Doppler evaluation of the right lower extremity deep veins was performed. Normal color flow is seen in the common femoral, superficial femoral, profunda femoral and greater saphenous veins. Normal flow is seen in the popliteal vein and veins below the knee in the calf. Normal venous compressibility and flow augmentation. IMPRESSION: Negative for evidence of deep venous thrombosis on right lower extremity venous Doppler sonogram. Electronically signed by: Ishmael Ramirez MD 09/23/2019 11:05 AM [facility]
== END ==
LOC: US 09:37
PROVIDERS: ATTEND Nurse Practitioner Family
DX: M79.604 Pain in right leg (principal)

== ENCOUNTER → 2019-11-03 | Outpatient (CLI) | payer MEDICARE, BC | LOC: NC 15:46 | PROVIDERS: ATTEND General Practice | DX: C18.9 Malignant neoplasm of colon, unspecified (principal); I10 Essential (primary) hypertension; R30.0 Dysuria; Z48.816 Encounter for surgical aftercare following surgery on the genitourinary system ==

== ENCOUNTER → 2020-02-03 | Outpatient (CLI) | payer MEDICARE, BC | LOC: NC 09:51 | PROVIDERS: ATTEND Nurse Practitioner Family | DX: C18.9 Malignant neoplasm of colon, unspecified (principal); I10 Essential (primary) hypertension; R30.0 Dysuria; K21.9 Gastro-esophageal reflux disease without esophagitis; M62.81 Muscle weakness (generalized); C64.9 Malignant neoplasm of unspecified kidney, except renal pelvis ==

== ENCOUNTER 2020-05-09 00:09 | Emergency (ER) | payer MEDICARE, BC ==
[2020-05-09 00:23] VITALS: TEMP 97.6
[2020-05-09] MEDS ORDERED: SODIUM CHLORIDE 0.9% 1000ML 1,000 ML IVS ONE (00:29)
--- NOTE | 2020-05-09 00:33 | ED.PDOC ---
History of Present Illness - General Chief Complaint: GI Problem Stated Complaint: diarrhea x's 1 month, weakness x's 2 weeks Time Seen by Provider: 05/09/20 00:15 Additional Information: Patient is a 65-year-old female who presents to the ED with chief complaint of diarrhea. Patient's diarrhea is chronic and has been present for over 1 month. She describes it as watery stool. Patient has been weak for the past week, slightly worse today and this has prompted patient to come to the ED. Patient has a history of partial bowel resection and kidney removal for "precancer" back in September 2019. Since then patient has home health assist her and she called home health today to discuss her weakness and they suggested she come to the ED. Patient had an appointment with her GI doctor, Dr. Kilgore, tomorrow morning but he called today to cancel the appointment and that also prompted patient's visit to the ED today. Patient denies fever, chills, chest pain, shortness of breath, nausea, vomiting, abdominal pain. She denies any black or bloody stools. Review of Systems - Review of Systems Constitutional: States: weakness. Denies: chills, diaphoresis, fever Respiratory: States: no symptoms reported. Denies: cough, short of breath Cardiology: States: no symptoms reported. Denies: chest pain, palpitations Gastrointestinal/Abdominal: States: see HPI, diarrhea. Denies: nausea, vomiting Genitourinary: States: no symptoms reported. Denies: dysuria Musculoskeletal: States: no symptoms reported. Denies: muscle pain Skin: States: no symptoms reported. Denies: rash Neurological: States: no symptoms reported. Denies: weakness All other Systems: Reviewed and Negative Past Medical History (General) - Patient Medical History Hx Seizures: No Hx Stroke: No Hx Dementia: No Hx Asthma: No Hx of COPD: No Hx Cardiac Disorders: No Hx Congestive Heart Failure: No Hx Pacemaker: No Hx Hypertension: No Hx Thyroid Disease: No Hx Diabetes: No Hx Gastroesophageal Reflux: No Hx Renal Disease: No Hx Cancer: Yes - left kidney Hx of HIV: No Hx Hepatitis C: No Hx MRSA: No - Vaccination History Hx Tetanus, Diphtheria Vaccination: No Hx Influenza Vaccination: No Hx Pneumococcal Vaccination: No - Social History Hx Tobacco Use: No Hx Alcohol Use: No Family Medical History - Family History Mother Family History: Unknown Living Status: Unknown Physical Exam - Physical Exam General Appearance: Alert, Comfortable, No apparent distress, Obese Neck: supple, normal inspection Respiratory: chest non-tender, lungs clear, normal breath sounds, no respiratory distress, no accessory muscle use Cardiovascular/Chest: normal peripheral pulses, regular rate, rhythm, no edema, no gallop, no JVD, no murmur Peripheral Pulses: No deficit Gastrointestinal/Abdominal: normal bowel sounds, non tender, soft, no organomegaly, no pulsatile mass Back Exam: normal inspection, no CVA tenderness Neurologic: no motor/sensory deficits, alert, normal mood/affect, oriented x 3 Skin Exam: normal color, warm/dry Progress - Progress Progress: 05/09/20 00:35 Differential diagnosis includes but is not limited to enteritis, colitis, electrolyte disorder, IBS. 05/09/20 00:39 EKG: Normal sinus rhythm, rate 72, left axis deviation, normal QRS, normal ST segments, non-specific T wave changes, negative STEMI. 05/09/20 02:02 Patient feeling much better following IV fluids. Patient's labs including her WBC and electrolytes are unremarkable and her CT is nonacute but shows changes consistent with enteritis. Patient has been unable to give a stool sample. Will DC with prescription for Cipro and patient to follow-up with her GI doctor, Dr. Winchester, this week for reevaluation. Vital signs stable, patient is NAD and looks clinically well and I believe is safe for discharge with outpatient follow-up. Follow-up instructions, discharge instructions and return to ED precautions discussed with patient. Patient voices understanding and willingness to comply with instructions. All laboratory and radiographic results have been discussed with the patient, and all questions answered. Patient is happy with plan. Departure - Departure Clinical Impression: Enteritis, Chronic diarrhea, Volume depletion Time of Disposition: 02:06 Disposition: Discharge to Home or Self Care Condition: Fair Departure Forms: ED Discharge - Pt. Copy, Patient Portal Self Enrollment Instructions: Diarrhea and Travelers' Diarrhea, Adult (DC) Referrals: Adry Brian NP [Primary Care Provider] - 1-5 Days Ayo Kilgore MD [Physicians] - 1-5 Days Prescriptions: Ciprofloxacin HCl [Cipro] 500 mg PO BID #20 tab Home Medications: Ambulatory Orders DULoxetine HCL [Cymbalta] 60 mg PO DAILY 08/15/19 Eszopiclone [Lunesta] 1 mg PO BEDTIME 08/15/19 Meloxicam [Mobic] 7.5 mg PO DAILY 08/15/19 Omeprazole [Prilosec Cap] 20 mg PO BID 08/15/19 Acetaminophen W/ Codeine [Tylenol W/ CODEINE #3] 1 ea PO Q6HR #20 08/22/19 Polyethylene Glycol 3350 [Tgt Powderlax] 17 gm PO Q24HR #20 robin 08/22/19 Potassium Gluconate 2 meq PO Q24HR #20 tab 08/22/19 Ciprofloxacin HCl [Cipro] 500 mg PO BID #20 tab 05/09/20
[2020-05-09 01:05] VITALS: O2SAT 99
--- NOTE | 2020-05-09 01:43 | CT ---
EXAM DESCRIPTION: Abdomen/Pelvis w/Contrast CLINICAL HISTORY: 65 years Female diarrhea COMPARISON: 08/22/2019 TECHNIQUE: Multiple contiguous axial CT slices were taken from the diaphragms to the pubic symphysis after intravenous administration of Iodinated contrast. This exam was performed according to our departmental dose-optimization program, which includes automated exposure control, adjustment of the mA and/or kV according to patient size and/or use of iterative reconstruction technique. FINDINGS: The lung bases are clear. Visualized cardiomediastinal structures are normal. Liver is normal. Gallbladder surgically absent. Bile ducts pancreas spleen and left adrenal are normal. The right adrenal gland is surgically absent. The right kidney is surgically absent. No abnormality seen in the right nephrectomy bed. The left kidney, ureter and bladder are normal. The uterus is surgically absent. No adnexal masses. Small sliding-type hiatal hernia. Small bowel is normal in caliber. There are multiple hyperenhancing loops within the right hemiabdomen, with associated bowel wall thickening. Postoperative changes of a right hemicolectomy. the surgical anastomosis appears intact. The remaining large bowel appears normal. No ascites, pneumatosis or pneumoperitoneum. No lymphadenopathy. Aortoiliac atherosclerosis. No aneurysm. The IVC is normal. No abdominal wall hernia defects. No destructive osseous lesions. IMPRESSION: 1. Uncomplicated enteritis involving small bowel loops within the right hemiabdomen. 2. No evidence of bowel obstruction. 3. Computer postoperative changes related to right nephrectomy and right hemicolectomy. Electronically signed by: Fernie Piper MD 05/09/2020 1:41 AM CDT
[2020-05-09 02:13] VITALS: BP 101/53
== END 2020-05-09 02:19 | disposition home or self-care (01) ==
LOC: ER 00:09
DX: K52.9 Noninfective gastroenteritis and colitis, unspecified (principal); E86.9 Volume depletion, unspecified; Z90.49 Acquired absence of other specified parts of digestive tract; Z90.5 Acquired absence of kidney; Z85.528 Personal history of other malignant neoplasm of kidney
CPT/HCPCS: 74177; 80053; 81001; 85025; J7030

== ENCOUNTER → 2020-05-29 | Outpatient (CLI) | payer MEDICARE, BC ==
--- NOTE | 2020-05-30 12:12 | US ---
EXAM DESCRIPTION: Venous,Lower Extremity RT: ULTRASOUND. CLINICAL HISTORY: PAIN IN RIGHT Calf COMPARISON: None Available. TECHNIQUE: Harris-scale and doppler sonographic evaluation of the deep venous system of the right lower extremity. FINDINGS: Doppler evaluation shows normal color flow and normal phasicity and augmentation of the right common femoral vein, right femoral vein, popliteal vein, greater saphenous vein, junction with the CFV. Also normal color flow and normal phasicity and augmentation of the peroneal, and posterior tibial vein. The right lower extremity deep veins were completely compressible; normal occlusion with transducer pressure. Harris-scale survey showed no echogenic thrombus within these veins. IMPRESSION: 1. Duplex ultrasound evaluation of the right lower extremity deep venous system showing no evidence of thrombosis. Electronically signed by: Joaquin Swan MD 05/30/2020 12:11 PM CDT
== END ==
LOC: US 10:42
PROVIDERS: ATTEND Physician Assistant
DX: M79.661 Pain in right lower leg (principal)

== ENCOUNTER → 2020-07-05 | Outpatient (CLI) | payer MEDICARE, BC | LOC: LAB.O 11:05 | PROVIDERS: ATTEND Internal Medicine Gastroenterology | DX: R19.7 Diarrhea, unspecified (principal) ==

== ENCOUNTER → 2020-07-24 | Outpatient (CLI) | payer MEDICARE, BC | LOC: NC 17:33 | PROVIDERS: ATTEND General Practice | DX: H81.11 Benign paroxysmal vertigo, right ear (principal) ==

== ENCOUNTER 2020-09-06 11:49 | Emergency (ER) | payer MEDICARE, BC ==
--- NOTE | 2020-09-06 12:07 | ED.PDOC ---
History of Present Illness - General Chief Complaint: Neuro Symptoms/Deficits Stated Complaint: headache, possible seizure Time Seen by Provider: 09/06/20 11:50 Source: patient, RN notes reviewed, Vital Signs reviewed, EMS notes reviewed, family, EMS, old records - History of Present Illness Initial Comments: 65 yo F comes in from clinic with c/c of throbbing left sided headache and left hip pain x 3 weeks. Denies any trauma. While at clinic patient had "staring spells" which they were concerned about absence seizure so sent patient here. Per patient has been having these episodes for over a year, has been evaluated by [facility] and neurologist, and no cause. She does have a hx of renal cell carcinoma. Headache is throbbing, temporal region. No acute vision changes. Allergies/Adverse Reactions: Allergies NO KNOWN ALLERGY Allergy (Verified 05/09/20 00:22) Home Medications: Ambulatory Orders DULoxetine HCL [Cymbalta] 60 mg PO DAILY 08/15/19 Eszopiclone [Lunesta] 1 mg PO BEDTIME 08/15/19 Meloxicam [Mobic] 7.5 mg PO DAILY 08/15/19 Omeprazole [Prilosec Cap] 20 mg PO BID 08/15/19 Acetaminophen W/ Codeine [Tylenol W/ CODEINE #3] 1 ea PO Q6HR #20 08/22/19 Polyethylene Glycol 3350 [Tgt Powderlax] 17 gm PO Q24HR #20 robin 08/22/19 Potassium Gluconate 2 meq PO Q24HR #20 tab 08/22/19 Ciprofloxacin HCl [Cipro] 500 mg PO BID #20 tab 05/09/20 Review of Systems - Review of Systems Constitutional: States: malaise, weakness. Denies: chills, fever EENTM: Denies: blurred vision, throat pain Respiratory: Denies: cough, short of breath Cardiology: Denies: chest pain, palpitations Gastrointestinal/Abdominal: Denies: abdominal pain, nausea, vomiting Genitourinary: Denies: dysuria, frequency, hematuria Musculoskeletal: States: back pain, joint swelling, muscle pain Skin: Denies: rash Neurological: States: headache. Denies: numbness, paresthesia, weakness Endocrine: Denies: unexplained weight gain, unexplained weight loss Hematologic/Lymphatic: Denies: easy bleeding, easy bruising Past Medical History (General) - Patient Medical History Hx Seizures: No Hx Stroke: No Hx Dementia: No Hx Asthma: No Hx of COPD: No Hx Cardiac Disorders: No Hx Congestive Heart Failure: No Hx Pacemaker: No Hx Hypertension: No Hx Thyroid Disease: No Hx Diabetes: No Hx Gastroesophageal Reflux: No Hx Renal Disease: No Hx Cancer: Yes - left kidney Hx of HIV: No Hx Hepatitis C: No Hx MRSA: No Surgical History: colectomy, other - nephrecetomy - Vaccination History Hx Tetanus, Diphtheria Vaccination: No Hx Influenza Vaccination: No Hx Pneumococcal Vaccination: No - Social History Hx Tobacco Use: No Hx Alcohol Use: No Family Medical History - Family History Mother Family History: Unknown Living Status: Unknown Physical Exam - Physical Exam General Appearance: Alert, Comfortable, No apparent distress, Well Developed, Well Groomed, Well Hydrated, Well Nourished Eye Exam: bilateral normal, bilateral abnormal EOM Ears, Nose, Throat: hearing grossly normal, normal ENT inspection, normal pharynx Neck: non-tender, full range of motion, supple, normal inspection Respiratory: chest non-tender, lungs clear, normal breath sounds, no respiratory distress, no accessory muscle use Cardiovascular/Chest: normal peripheral pulses, regular rate, rhythm, no edema, no gallop, no JVD, no murmur Peripheral Pulses: radial,right: 2+, radial,left: 2+ Gastrointestinal/Abdominal: normal bowel sounds, non tender, soft, no organomegaly, no pulsatile mass Rectal Exam: deferred Back Exam: normal inspection, no CVA tenderness, no vertebral tenderness Extremity: normal range of motion, non-tender, normal inspection, no pedal edema, no calf tenderness, normal capillary refill Neurologic: shake loader II-XII nml as tested, no motor/sensory deficits, alert, normal mood/affect, oriented x 3, other - no pronator drift, finger to nose intact Skin Exam: normal color, warm/dry Progress - Progress Progress: 09/06/20 13:09 patient given IVF and 10 mg dexamethasone for headache. ESR 15. due to extensive work up In past for similar complaints I do not feel she needs admission at this time. Recommend follow up with neurologist. The data reviewed when caring for this patient included: nurse notes, prior records, etc. The history and assessments from nurses notes were reviewed and considered, and the patient's home medication list was also reviewed and considered. My assessment and the results of testing completed here in the ED were discussed with the patient/family. All questions were answered, and they express understanding of my assessment and the plan. They have been instructed to return if their symptoms worsen, and have been asked to follow up with their primary care physician to recheck today's presenting complaint. Strict return precautions given. Nancy Jaimes DO #[id number] 09/06/20 13:21 - Results/Orders Results/Orders: 09/06/20 12:02 Venous,Lower Extremity LT [US] Stat 09/06/20 12:03 ERYTHROCYTE SEDIMENTATION RATE Stat 09/06/20 12:05 EKG Assessment ONCE 09/06/20 12:15 EKG STAT 09/06/20 12:25 Sodium Chloride 0.9% 1000ML [Ns 1000 ml] 1,000 ml IVS ONCE Laboratory Results WBC 6.8 K/mm3 (4.8-10.8) 09/06/20 12:03 RBC 4.16 M/mm3 (4.20-5.40) L 09/06/20 12:03 Hgb 12.7 gm/dL (12.0-16.0) 09/06/20 12:03 Hct 35.4 % (36.0-47.0) L 09/06/20 12:03 MCV 85.0 fl (81.0-99.0) 09/06/20 12:03 MCH 30.5 pg (27.0-31.0) 09/06/20 12:03 MCHC 35.9 g/dL (33.0-37.0) 09/06/20 12:03 RDW 13.9 % (11.5-14.5) 09/06/20 12:03 Plt Count 255 K/mm3 (130-400) 09/06/20 12:03 MPV 6.7 fl (7.40-10.4) L 09/06/20 12:03 Absolute Neuts (auto) 3.90 K/uL (1.8-6.8) 09/06/20 12:03 Absolute Lymphs (auto) 2.10 K/uL (1.0-3.4) 09/06/20 12:03 Absolute Monos (auto) 0.60 K/uL (0.2-0.8) 09/06/20 12:03 Absolute Eos (auto) 0.20 K/uL (0.0-0.4) 09/06/20 12:03 Absolute Basos (auto) 0.00 K/uL (0.0-0.1) 09/06/20 12:03 Neutrophils % 57.6 % (42.0-78.0) 09/06/20 12:03 Lymphocytes % 30.8 % (20.0-50.0) 09/06/20 12:03 Monocytes % 8.6 % (2.0-9.0) 09/06/20 12:03 Eosinophils % 2.4 % (1.0-5.0) 09/06/20 12:03 Basophils % 0.6 % (0.0-2.0) 09/06/20 12:03 PT 10.1 SECONDS (9.0-10.9) 09/06/20 12:03 INR 1.02 (0.9-1.15) 09/06/20 12:03 PTT (SP) 25.2 SECONDS (21.8-31.6) 09/06/20 12:03 Sodium 131 mmol/L (135-145) L 09/06/20 12:03 Potassium 4.5 mmol/L (3.6-5.0) 09/06/20 12:03 Chloride 94 mmol/L (101-111) L 09/06/20 12:03 Carbon Dioxide 25 mmol/L (21-31) 09/06/20 12:03 Anion Gap 16.5 (12-18) 09/06/20 12:03 BUN 27 mg/dL (7-18) H 09/06/20 12:03 Creatinine 1.20 mg/dL (0.6-1.3) 09/06/20 12:03 BUN/Creatinine Ratio 22.5 (10-20) H 09/06/20 12:03 Random Glucose 102 mg/dL (70-105) 09/06/20 12:03 Serum Osmolality 268.0 mOsm/L (275-295) L 09/06/20 12:03 Calcium 8.9 mg/dL (8.4-10.2) 09/06/20 12:03 Phosphorus 3.8 mg/dL (2.5-4.6) 09/06/20 12:03 Magnesium 2.1 mg/dL (1.8-2.5) 09/06/20 12:03 Total Bilirubin 0.7 mg/dL (0.2-1.0) 09/06/20 12:03 AST 18 IU/L (10-42) 09/06/20 12:03 ALT 16 IU/L (10-60) 09/06/20 12:03 Alkaline Phosphatase 66 IU/L (42-121) 09/06/20 12:03 Troponin I < 0.02 ng/mL (0.01-0.05) 09/06/20 12:03 C-Reactive Protein < 0.8 mg/dL (0-1.0) 09/06/20 12:03 B-Natriuretic Peptide 22.7 pg/ml (0-100) 09/06/20 12:03 Serum Total Protein 8.1 gm/dL (6.4-8.2) 09/06/20 12:03 Albumin 4.4 g/dl (3.2-5.5) 09/06/20 12:03 Globulin 3.7 gm/dL (2.3-3.5) H 09/06/20 12:03 Albumin/Globulin Ratio 1.2 (1.1-1.9) 09/06/20 12:03 TSH 1.77 uIU/mL (0.34-5.60) 09/06/20 12:03 venous US negative for DVT - EKG/XRAY/CT EKG: Sinus Comments: NSR, normal intervals, no acute ischemia. LAD XRAY: chest - no acute cardiopulmonary pathology Xray Comments: left hip: no fracture CT: head: no ICH or acute ic pathology noted. Departure - Departure Clinical Impression: Hip pain, Arthritis Headache Qualifiers: Headache type: unspecified Headache chronicity pattern: unspecified pattern Intractability: not intractable Qualified Code(s): R51.9 - Headache, unspecified Time of Disposition: 13:11 Disposition: Discharge to Home or Self Care Condition: Fair Departure Forms: ED Discharge - Pt. Copy, Patient Portal Self Enrollment Instructions: Headache, Adult, Home Headache Remedies Diet: resume usual diet Activity: increase activity as tolerated Referrals: Adry Brian NP [Primary Care Provider] - 1-5 Days Home Medications: Ambulatory Orders DULoxetine HCL [Cymbalta] 60 mg PO DAILY 08/15/19 Eszopiclone [Lunesta] 1 mg PO BEDTIME 08/15/19 Meloxicam [Mobic] 7.5 mg PO DAILY 08/15/19 Omeprazole [Prilosec Cap] 20 mg PO BID 08/15/19 Acetaminophen W/ Codeine [Tylenol W/ CODEINE #3] 1 ea PO Q6HR #20 08/22/19 Polyethylene Glycol 3350 [Tgt Powderlax] 17 gm PO Q24HR #20 robin 08/22/19 Potassium Gluconate 2 meq PO Q24HR #20 tab 08/22/19 Ciprofloxacin HCl [Cipro] 500 mg PO BID #20 tab 05/09/20
[2020-09-06] MEDS ORDERED: DEXAMETHASONE INJ 10 MG/ML VIAL IV ONE (12:22)
[2020-09-06] MEDS ORDERED: SODIUM CHLORIDE 0.9% 1000ML 1,000 ML IVS ONE (12:25)
--- NOTE | 2020-09-06 12:35 | CT ---
EXAM DESCRIPTION: Head CLINICAL HISTORY: headache COMPARISON: None available TECHNIQUE: Noncontrast head CT was performed with routine protocol. FINDINGS: Normal gallardo-white matter differentiation. Ventricles and sulci are normal for age. No high density hemorrhage, focal edema or shift of the midline. No sulcal effacement. Normal orbital contents. Basilar cisterns appear clear. Intact calvarium with no fracture or lytic lesion. Normal aeration of tympanic cavities and mastoid air cells. No fluid levels in the paranasal sinuses. Skull base appears intact. Symmetrical internal auditory canals. IMPRESSION: No acute intracranial pathologic process. This exam was performed according to our departmental dose-optimization program, which includes automated exposure control, adjustment of the mA and/or kV according to patient size and/or use of iterative reconstruction technique. Total DLP equals 752.48 mGycm. Electronically signed by: Ishmael Ramirez MD 09/06/2020 12:34 PM [facility]
--- NOTE | 2020-09-06 12:45 | RAD ---
EXAM DESCRIPTION: Chest,1 View CLINICAL HISTORY: 65 years Female, short of breath COMPARISON: Previous study September 05, 2018 TECHNIQUE: AP portable chest. FINDINGS: Heart size is normal with normal pulmonary vascularity. Discoid atelectasis in the peripheral left lung base versus linear scarring. This appears similar to previous study. Otherwise no consolidating infiltrate. No pulmonary mass or worrisome nodule. No pneumothorax or pleural effusion. Bones are unremarkable. IMPRESSION: No acute process is identified in the chest. Electronically signed by: Ishmael Ramirez MD 09/06/2020 12:44 PM [employer]
--- NOTE | 2020-09-06 12:51 | RAD ---
EXAM DESCRIPTION: Hip,Left 2 Views CLINICAL HISTORY: 65 years, Female, pain COMPARISON: None TECHNIQUE: AP and frog leg lateral views of the left hip FINDINGS: 2 views of the left hip reveal no fracture or dislocation of the left hip. No lytic bone lesion. Mild narrowing of the medial aspect of the hip joint. Spurring at the superolateral acetabular margin. Degenerative narrowing of the left SI joint and pubic symphysis. Bones of the left pelvic ring and left side of the sacrum appear intact. IMPRESSION: Negative for fracture. Electronically signed by: Ishmael Ramirez MD 09/06/2020 12:49 PM [facility]
--- NOTE | 2020-09-06 13:15 | US ---
EXAM DESCRIPTION: Venous,Lower Extremity LT CLINICAL HISTORY: LLE pain COMPARISON: None Available. TECHNIQUE: Left lower extremity venous duplex FINDINGS: Doppler evaluation of the left lower extremity deep veins was performed. Normal color flow is seen in the common femoral, superficial femoral, profunda femoral and greater saphenous veins. Normal flow is seen in the popliteal vein and veins below the knee in the calf. Normal venous compressibility and flow augmentation. IMPRESSION: Negative for evidence of deep venous thrombosis on left lower extremity venous Doppler sonogram. Electronically signed by: Ishmael Ramirez MD 09/06/2020 1:13 PM [employer]
[2020-09-06 14:03] VITALS: BP 150/60; TEMP 97.2; O2SAT 95
== END 2020-09-06 13:48 | disposition home or self-care (01) ==
LOC: ER 11:49
DX: R51.9 Headache, unspecified (principal); M16.12 Unilateral primary osteoarthritis, left hip; M25.552 Pain in left hip; Z85.528 Personal history of other malignant neoplasm of kidney; Z79.899 Other long term (current) drug therapy; Z20.828 Contact with and (suspected) exposure to other viral communicable diseases
CPT/HCPCS: 36415; 70450; 71045; 73502; 80053; 83735; 83880; 84100; 84443; 84484; 85025; 85610; 85651; 85730; 86140; 87502; 87635; 93005; 93971; J1100; J7030